=== PATIENT | female | born 1965 | race Native Hawaiian/Other Pacific Islander ===

== ENCOUNTER 2019-08-13 09:01 | Outpatient (CLI) | payer OTHER | END 2019-08-13 19:35 | disposition home or self-care (01) | LOC: MAMMO 09:01 | DX: Z85.3 Personal history of malignant neoplasm of breast (principal) ==

== ENCOUNTER 2020-04-27 13:57 | Outpatient (CLI) | payer OTHER | END 2020-04-27 19:24 | disposition home or self-care (01) | LOC: LABW 13:57 | DX: R19.7 Diarrhea, unspecified (principal) | CPT/HCPCS: 83630; 87015; 87045; 87324; 87328; 87329; 87449; 87899 ==

== ENCOUNTER 2021-12-21 08:35 | Emergency (ER) | payer OTHER ==
[~2021-12-21] VITALS: Ht 162.6 cm; Wt 49.9 kg
[2021-12-21 08:40] VITALS: TEMP 97.5
[2021-12-21] MEDS ORDERED: PHEN200T3 PO (09:26)
[2021-12-21] MEDS ORDERED: CIPR500T PO (09:26)
[2021-12-21 09:52] VITALS: BP 122/80
== END 2021-12-21 09:53 | disposition home or self-care (01) ==
LOC: ED 08:35
DX: N39.0 Urinary tract infection, site not specified (principal)
CPT/HCPCS: 81000; 87077; 87086; 87088; 87186; 96372; 99283; J0696